=== PATIENT | male | born 1995 | race Caucasian/White ===

== ENCOUNTER 2023-10-19 04:26 | Inpatient (IN) | payer OTHER ==
[2023-10-19] MEDS: LIDOCAINE HCL 2% (50ML VIAL) SQ ONE (06:49)
[2023-10-19 10:54] LABS: EOS % 0.5 % (0-4.5); HEMATOCRIT 51.6 % (35.4-49); HEMOGLOBIN 17.4 GM/dL (11.7-16.9); LYMPH % 16.2 % (8-40); MCH 29.5 pg (25.7-33.7); MCHC 33.8 g/dl (32.0-35.9); MEAN CELL VOLUME 87.3 fl (80-96); MONO % 8.2 % (3.8-10.2); NEUT % 74.1 % (42.8-82.8); PLATELET COUNT 261 10^3/uL (134-434); RBC 5.91 M/mm3 (4.00-5.60); RDW 15.4 % (11.9-15.9); WHITE BLOOD COUNT 13.8 K/mm3 (4.0-10.0)
[2023-10-19] MEDS: morphine CARPU-JECT 2 MG/1 ML DISP.SYRIN IVPUSH ONE (11:49)
[2023-10-19] MEDS ORDERED: KETOROLAC TROMETHAMINE 15 MG/ML VIAL ONE (12:38)
[2023-10-19] MEDS: KETOROLAC TROMETHAMINE 15 MG/ML VIAL IVPUSH ONE (12:46)
[2023-10-19 13:17] LABS: POTASSIUM 3.8 mmol/L (3.5-5.1)
[2023-10-19 13:18] LABS: CALCIUM 9.4 mg/dL (8.5-10.1)
[2023-10-19 13:19] LABS: ALBUMIN 3.7 g/dl (3.4-5.0); BLOOD UREA NITROGEN 5.4 mg/dL (7-18)
[2023-10-19 13:22] LABS: CREATININE 0.7 mg/dL (0.55-1.3)
[2023-10-19 13:25] LABS: BILIRUBIN,TOTAL 0.5 mg/dL (0.2-1); TOT PROT 7.7 g/dl (6.4-8.2)
[2023-10-19 14:26] VITALS: BMI 37.3
[2023-10-20 09:53] LABS: HEMATOCRIT 49.4 % (35.4-49); HEMOGLOBIN 16.8 GM/dL (11.7-16.9); MCH 29.6 pg (25.7-33.7); MEAN CELL VOLUME 87.2 fl (80-96); MEAN PLT VOLUME 9.8 fl (7.5-11.1); PLATELET COUNT 206 10^3/uL (134-434); RBC 5.67 M/mm3 (4.00-5.60); RDW 14.4 % (11.9-15.9); WHITE BLOOD COUNT 10.8 K/mm3 (4.0-10.0)
[2023-10-20 10:08] LABS: POTASSIUM 3.3 mmol/L (3.5-5.1)
[2023-10-20 10:15] LABS: CALCIUM 9.5 mg/dL (8.5-10.1)
[2023-10-20 10:16] LABS: ALBUMIN 3.5 g/dl (3.4-5.0); BLOOD UREA NITROGEN 9.7 mg/dL (7-18); MAGNESIUM 2.3 mg/dL (1.8-2.4)
[2023-10-20 10:19] LABS: CREATININE 0.8 mg/dL (0.55-1.3); PHOSPHOROUS 2.8 mg/dL (2.5-4.9)
[2023-10-20 10:20] LABS: BILIRUBIN,TOTAL 0.7 mg/dL (0.2-1); TOT PROT 7.3 g/dl (6.4-8.2)
[2023-10-20] MEDS: POTASSIUM CHLORIDE TABS 10 MEQ TABLET.ER (FP) PO ONE (11:17)
[2023-10-20] MEDS: ACETAMINOPHEN 1000 MG/100 ML BAG IVPB ONE (11:18)
[2023-10-20] MEDS: morphine SULFATE 4 MG/ML VIAL IVPUSH PRN (14:57)
[2023-10-21] MEDS: ACETAMINOPHEN 1000 MG/100 ML BAG IVPB PRN (06:27)
[2023-10-21 08:24] LABS: INR 1.07 (0.83-1.09); PROTHROMBIN TIME (PATIENT) 12.4 SEC (9.7-13.0)
[2023-10-21 08:36] LABS: POTASSIUM 3.9 mmol/L (3.5-5.1)
[2023-10-21 08:41] LABS: BLOOD UREA NITROGEN 9.1 mg/dL (7-18)
[2023-10-21 08:44] LABS: CALCIUM 9.3 mg/dL (8.5-10.1); CREATININE 0.7 mg/dL (0.55-1.3)
[2023-10-21 08:47] LABS: HEMOGLOBIN 16.4 GM/dL (11.7-16.9); MCH 29.9 pg (25.7-33.7); MCHC 34.1 g/dl (32.0-35.9); MEAN CELL VOLUME 87.7 fl (80-96); MEAN PLT VOLUME 10.2 fl (7.5-11.1); PLATELET COUNT 205 10^3/uL (134-434); RBC 5.47 M/mm3 (4.00-5.60); RDW 14.5 % (11.9-15.9); WHITE BLOOD COUNT 12.1 K/mm3 (4.0-10.0)
[2023-10-21] MEDS ORDERED: NIFEdipine E.R 60 MG TABLET PO SCH (11:00)
[2023-10-21] MEDS: NIFEdipine E.R 60 MG TABLET PO SCH (11:13)
[2023-10-22] MEDS ORDERED: LIDOCAINE HCL/PF 2% SDV 5ML VIAL ONE (07:06)
[2023-10-22] MEDS ORDERED: SODIUM CHLORIDE 0.9% P/F 10 ML VIAL IJ ONE (07:06)
[2023-10-22] MEDS ORDERED: ceFAZolin SODIUM 1 GM VIAL ONE (07:06)
[2023-10-22] MEDS ORDERED: FENTANYL CITRATE/PF 50 MCG/ML VIAL ONE ×5 (07:07→11:22)
[2023-10-22] MEDS ORDERED: PROPOFOL 40 ML ONE (07:07)
[2023-10-22] MEDS ORDERED: MIDAZOLAM HCL 2 MG/2 ML SINGLE DOSE VIAL ONE (07:08)
[2023-10-22] MEDS ORDERED: BUPIVACAINE HCL/PF 0.5% (5MG/ML) 10 ML VIAL ONE ×2 (07:15→07:28)
[2023-10-22] MEDS ORDERED: ACETAMINOPHEN INJECTION 100 ML IVPB ONE (07:26)
[2023-10-22] MEDS: ceFAZolin SODIUM 1 GM VIAL IVPB ONE (08:00)
[2023-10-22] MEDS ORDERED: ONDANSETRON 4 MG/2 ML VIAL ONE ×2 (09:35→12:13)
[2023-10-22] MEDS ORDERED: KETOROLAC TROMETHAMINE 30 MG/1 ML VIAL ONE (09:35)
[2023-10-22] MEDS ORDERED: DEXAMETHASONE SOD PHOSPHATE 4 MG/1 ML VIAL ONE (09:35)
[2023-10-22] MEDS: ONDANSETRON 4 MG/2 ML VIAL IVPUSH PRN (12:13)
[2023-10-22 14:37] LABS: HEMOGLOBIN 16.2 GM/dL (11.7-16.9); MCH 29.8 pg (25.7-33.7); MCHC 33.7 g/dl (32.0-35.9); MEAN CELL VOLUME 88.5 fl (80-96); MEAN PLT VOLUME 9.7 fl (7.5-11.1); PLATELET COUNT 238 10^3/uL (134-434); RBC 5.42 M/mm3 (4.00-5.60); RDW 14.1 % (11.9-15.9); WHITE BLOOD COUNT 15.8 K/mm3 (4.0-10.0)
[2023-10-22 14:44] LABS: INR 1.05 (0.83-1.09); PROTHROMBIN TIME (PATIENT) 12.2 SEC (9.7-13.0)
[2023-10-22 14:47] LABS: ACTIVATED PTT 35.2 SECONDS (25.2-36.5)
[2023-10-22 15:10] LABS: POTASSIUM 4.2 mmol/L (3.5-5.1)
[2023-10-22 15:11] LABS: CALCIUM 9.4 mg/dL (8.5-10.1)
[2023-10-22 15:12] LABS: BLOOD UREA NITROGEN 13.7 mg/dL (7-18)
[2023-10-22 15:15] LABS: CREATININE 0.9 mg/dL (0.55-1.3)
[2023-10-22] MEDS: LACTATED RINGERS SOLUTION 1,000 ML IV SCH (15:45)
[2023-10-23] MEDS: morphine SULFATE 4 MG/ML VIAL IVPUSH PRN (05:04)
[2023-10-23] MEDS: ACETAMINOPHEN 1000 MG/100 ML BAG IVPB PRN (07:20)
[2023-10-23 08:19] LABS: HEMATOCRIT 44.8 % (35.4-49); HEMOGLOBIN 14.8 GM/dL (11.7-16.9); MCH 29.4 pg (25.7-33.7); MCHC 33.1 g/dl (32.0-35.9); MEAN CELL VOLUME 88.8 fl (80-96); MEAN PLT VOLUME 10.2 fl (7.5-11.1); PLATELET COUNT 223 10^3/uL (134-434); RBC 5.05 M/mm3 (4.00-5.60); RDW 14.6 % (11.9-15.9); WHITE BLOOD COUNT 14.2 K/mm3 (4.0-10.0)
[2023-10-23 08:54] LABS: CALCIUM 8.7 mg/dL (8.5-10.1)
[2023-10-23 08:58] LABS: CREATININE 0.7 mg/dL (0.55-1.3)
[2023-10-23] MEDS: NIFEdipine E.R. 30 MG TABLET PO SCH (10:49)
[2023-10-23] MEDS: GABAPENTIN 300 MG CAPSULE PO SCH (21:53)
[2023-10-24] MEDS: ENOXAPARIN NA (PORCINE) 40 MG/0.4 ML DISP.SYRIN SQ SCH (09:45)
[2023-10-25 08:41] LABS: BASO % 0.6 % (0-2.0); EOS % 1.3 % (0-4.5); HEMATOCRIT 47.7 % (35.4-49); HEMOGLOBIN 15.9 GM/dL (11.7-16.9); MCH 29.7 pg (25.7-33.7); MCHC 33.4 g/dl (32.0-35.9); MEAN CELL VOLUME 88.9 fl (80-96); MEAN PLT VOLUME 10.4 fl (7.5-11.1); MONO % 7.8 % (3.8-10.2); NEUT % 71.3 % (42.8-82.8); PLATELET COUNT 252 10^3/uL (134-434); RBC 5.37 M/mm3 (4.00-5.60); RDW 14.2 % (11.9-15.9); WHITE BLOOD COUNT 12.7 K/mm3 (4.0-10.0)
[2023-10-25 09:00] VITALS: BP 153/103; PULSE 74; RESP 19; TEMP 98.1
[2023-10-25] MEDS ORDERED: oxyCODONE HCL 5 MG TABLET PO PRN (09:17)
[2023-10-25] MEDS ORDERED: ACETAMINOPHEN 325 MG TABLET (FP) PO PRN (09:17)
[2023-10-25] MEDS: LOSARTAN POTASSIUM 50 MG TABLET PO SCH (12:17)
== END 2023-10-25 13:37 | disposition home or self-care (01) | DRG 313 ==
LOC: JER 04:26 → JERBED 10:11 → OBSVTOIN 11:13 → J5S 13:10
PROVIDERS: ADMIT Internal Medicine
PROC: 0SSF04Z Reposition Right Ankle Joint with Internal Fixation Device, Open Approach (ICD-10-PCS; principal; 2023-10-22 07:30)
DX: S82.841A Displaced bimalleolar fracture of right lower leg, initial encounter for closed fracture (principal); I10 Essential (primary) hypertension; S93.04XA Dislocation of right ankle joint, initial encounter; W19.XXXA Unspecified fall, initial encounter; Y93.9 Activity, unspecified; Y92.89 Other specified places as the place of occurrence of the external cause; Y99.9 Unspecified external cause status
CPT/HCPCS: 36415; 73590-TC-RT-FY; 73610-TC-RT-FY; 73630-TC-RT-FY; 73700-TC-RT; 76000-TC-FY; 80048; 80053; 83735; 84100; 85025; 85027; 85610; 85730; 86850; 86900; 86901; 93005; 93010; 94760; 97116-GP; 97162-GP; 99285-25; C1713; G0378; J0131